=== PATIENT | female | born 1990 | race Caucasian/White ===

== ENCOUNTER 2017-11-11 00:01 | Inpatient (IN) | END 2017-11-12 17:30 | disposition home or self-care (01) | DRG 782 ==

== ENCOUNTER 2017-11-15 07:33 | Emergency (ER) | END 2017-11-15 14:41 | disposition home or self-care (01) ==

== ENCOUNTER 2018-02-28 09:48 | Outpatient (CLI) | END 2018-02-28 11:05 | disposition home or self-care (01) ==

== ENCOUNTER 2019-03-16 18:02 | Emergency (ER) | payer OTHER ==
[~2019-03-16] VITALS: Ht 167.6 cm; Wt 99.2 kg
[~2019-03-16 18:02] MED LIST: PREN-93 PO
[2019-03-16 18:25] VITALS: Ht 167.6 cm; Wt 99.2 kg
--- NOTE | 2019-03-16 19:46 | ERD ---
ER Documentation Chief Complaint Chief Complaint painful mass on right breast x 1week HPI 29-year-old female, currently breast-feeding her 8-month-old baby, presents the emergency department, complaining of 3 days with progressive worsening of right breast pain. She denies fever, no chills, no local erythema. ROS All systems reviewed and are negative except as per history of present illness. Medications Home Meds Active Scripts Acetaminophen* (Tylenol*) 325 Mg Tablet, 2 TAB PO Q6 PRN for PAIN AND OR ELEVATED TEMP, #20 TAB Prov:FIORELLA TELLO MD 03/16/19 Ibuprofen* (Motrin*) 600 Mg Tab, 600 MG PO Q6 PRN for PAIN AND OR ELEVATED TEMP, #20 TAB Prov:FIORELLA TELLO MD 03/16/19 Cephalexin* (Keflex*) 500 Mg Capsule, 500 MG PO QID for 7 Days, CAP Prov:FIORELLA TELLO MD 03/16/19 Reported Medications Vit No.124/Iron/FA ( Vitamin Tablet) 1 Each Tablet, 1 EACH PO DAILY, TAB 02/28/18 Allergies Allergies: Coded Allergies: No Known Allergy (Unverified , 03/16/19) PMhx/Soc History of Surgery: No Anesthesia Reaction: No Hx Neurological Disorder: No Hx Respiratory Disorders: No Hx Cardiac Disorders: Yes (anemia ) Hx Psychiatric Problems: No Hx Miscellaneous Medical Probl: No Hx Alcohol Use: No Hx Substance Use: No Hx Tobacco Use: No FmHx Family History: diabetes Physical Exam Vitals Vital Signs Date Temp Pulse Resp B/P (MAP) Pulse Ox O2 O2 Flow FiO2 Time Delivery Rate 03/16/19 98.2 88 16 104/64 97 Room Air 20:09 (77) 03/16/19 99.2 90 16 122/64 98 18:25 (83) Physical Exam Patient alert, oriented, vital signs stable. HEAD: Normocephalic, atraumatic. EYES: PERRLA, EOMI, Sclera and conjunctiva appear normal. NOSE: Clear and patent nostrils. EARS: Canals clear, tympanic membranes WNL. MOUTH: normal lips and tongue, no oral lesions. THROAT: Normal oropharynx, no tonsillar exudates. NECK: Supple, No lymphadenopathy. Full ROM without pain or tenderness. HEART: RRR, no rubs, murmurs, clicks or gallops. Breasts: Right: Normal inspection, No induration, no erythema, warmth and tender to palpation in the joann-areolar area, no fluctuance. LUNGS: Clear to auscultation. ABDOMEN: Soft, non-tender without masses or hepatosplenomegaly. EXTREMITIES: No edema bilaterally. BACK: Full ROM, no deformity, normal back exam NEURO: Cranial nerves grossly intact, no motor or sensory deficit SKIN: No rashes, no petechia. Results 24 hrs Current Medications Medications Dose Sig/Vinayak Start Time Status Last (Trade) Ordered Route PRN Stop Time Admin Dose Reason Admin Ibuprofen 600 mg ONCE ONCE 03/16/19 DC 03/16/19 (Motrin) PO 20:00 03/16/19 19:55 20:01 650 mg ONCE ONCE 03/16/19 DC 03/16/19 Acetaminophen PO 20:00 03/16/19 19:56 (Tylenol 20:01 Tab) Procedures/MDM Vital signs stable. Differential diagnosis considered include hematoma, mastitis, lipoma, cyst, fibroglandular changes of the breast. Low suspicion for malignancy. During the ED course the patient remained stable, no new complaints. The patient received treatment with ibuprofen and acetaminophen. Treatment options and clinical impression discussed with the patient who agrees with management. The patient is stable to be treated outpatient and will be discharged home with a Rx for cephalexin, ibuprofen and acetaminophen, some side effects of prescribed medications (headache, rash, nausea, vomiting, diarrhea, bleeding, hypertension, interactions with other medications) were reviewed. Follow up with the primary care provider in the next 48h has been recommended. If symptoms persist, worsen or new symptoms develop, then patient should return to the ED immediately. Instructions explained and given directly by me to the patient with acknowledgment and demonstrated understanding. Disclaimer: Inadvertent spelling and grammatical errors are likely due to EHR/dictation software use and do not reflect on the overall quality of patient care. Also, please note that the electronic time recorded on this note does not necessarily reflect the actual time of the patient encounter. Departure Diagnosis: Primary Impression: Acute mastitis of right breast Condition: Stable Additional Instructions: Thank you very much for allowing us to participate in your care. Your health and safety is our top priority at [facility]. The evaluation in the emergency department has been done to rule out an acute emergency. Chronic, [id number] conditions may have not been evaluated; therefore, you need to follow up with a primary care provider in the next 48h. If symptoms persist, worsen or new symptoms develop, then patient should return to the ED immediately. Call your primary care doctor TOMORROW for an appointment during the next 2-4 days and bring all the information provided. Have prescriptions filled and follow precisely the directions on the label. If the symptoms get worse and your provider is unavailable, return to the Emergency Department immediately. FIORELLA TELLO MD Mar 16, 2019 19:46
[2019-03-16] MEDS ORDERED: CEPH-443 PO (19:47)
[2019-03-16] MEDS ORDERED: ACET325T33 PO (19:49)
[2019-03-16] MEDS ORDERED: IBUP-1542 PO (19:49)
[2019-03-16] MEDS ORDERED: ACETAMINOPHEN 325 MG TAB PO ONE (20:00)
[2019-03-16] MEDS ORDERED: IBUPROFEN 600 MG TAB PO ONE (20:00)
[2019-03-16 20:09] VITALS: BP 104/64; PULSE 88; RESP 16
== END 2019-03-16 20:09 | disposition home or self-care (01) ==
LOC: FTE 18:02
DX: N61.0 Mastitis without abscess (principal)
CPT/HCPCS: Z7502; Z7610; 99283